=== PATIENT | male | born 1975 | race Caucasian/White ===

== ENCOUNTER 2017-03-03 05:25 | Observation (INO) | payer OTHER ==
[~2017-03-03] VITALS: Ht 170.2 cm; Wt 75.4 kg
[2017-03-03 06:31] VITALS: BP 138/65; PULSE 64; TEMP 98
[2017-03-03] MEDS ORDERED: PRINIVIL40 MG PO (08:36)
[2017-03-03] MEDS ORDERED: MULTI VITAMINS1 TAB PO (08:37)
[2017-03-03 10:04] VITALS: BP 121/78; PULSE 67; TEMP 97.9
== END 2017-03-03 13:51 | disposition home or self-care (01) ==
LOC: SURG 05:25
DX: N20.1 Calculus of ureter (principal); I10 Essential (primary) hypertension
CPT/HCPCS: G0378; J2270; J7030